=== PATIENT | female | born 1990 | race Caucasian/White ===

== ENCOUNTER 2021-08-29 12:10 | Emergency (ER) | payer SELFPAY ==
[2021-08-29 12:16] VITALS: BP 94/63; PULSE 90; TEMP 98.6; BMI 25.5
[2021-08-29] MEDS ORDERED: IBUPROFEN 600 MG TABLET (FP) PO ONE ×2 (12:56→13:08)
== END 2021-08-29 13:15 | disposition home or self-care (01) ==
LOC: JERFT 12:10
DX: M25.521 Pain in right elbow (principal)
CPT/HCPCS: 73070-TC-RT-FY; 99283-25